=== PATIENT | male | born 1955 | race Caucasian/White ===

== ENCOUNTER 2023-11-23 07:51 | Day surgery (SDC) | payer MEDICARE, BC ==
[~2023-11-23] VITALS: Ht 182.9 cm; Wt 94.9 kg
[2023-11-23] VITALS (17 sets, daily range): BP systolic 91–134; BP diastolic 48–69; PULSE 50–62; RESP 12–18; TEMP 97.3–98.2; O2SAT 95–100
[2023-11-23] MEDS ORDERED: nitroGLYCERIN 0.4mg SUBLingual tab SL PRN ×2 (08:10→12:40)
[2023-11-23] MEDS ORDERED: UBIQ100C2 PO (08:52)
[2023-11-23] MEDS ORDERED: OMEG100037 PO (08:52)
[2023-11-23] MEDS ORDERED: ASPI81TA52 PO (08:52)
[2023-11-23] MEDS ORDERED: SACC250C9 PO (08:52)
[2023-11-23] MEDS ORDERED: MULT-1249 PO (08:52)
[2023-11-23] MEDS ORDERED: NITR0.4T48 SL (08:52)
[2023-11-23] MEDS ORDERED: ATOR10TA70 PO (08:52)
[2023-11-23 08:59] LABS: BASOPHILS % (AUTO) 0.4 % (0-1); EOSINOPHILS # (AUTO) 0.2 X10'3 (0-0.9); EOSINOPHILS % (AUTO) 3.5 % (0-6); HEMATOCRIT 39.6 % (42.0-52.0); HEMOGLOBIN 12.8 g/dl (14.0-17.9); LYMPHOCYTES # (AUTO) 0.8 X10'3 (1.1-4.8); LYMPHOCYTES % (AUTO) 16.1 % (21-51); MEAN CORPUSCULAR HGB CONC 32.3 g/dL (33.0-36.5); MEAN CORPUSCULAR VOLUME 89.9 FL (78-98); MEAN PLATELET VOLUME 6.8 FL (7.4-10.4); MONOCYTES # (AUTO) 0.5 X10'3 (0-0.9); MONOCYTES % (AUTO) 9.5 % (2-12); NEUTROPHILS # (AUTO) 3.4 X10'3 (1.8-7.7); NEUTROPHILS % (AUTO) 70.5 % (42-75); PLATELET COUNT 170 X10'3 (140-440); RED BLOOD COUNT 4.41 X10'6 (4.70-6.10); RED CELL DISTRIBUTION WIDTH 13.7 % (11.5-14.5); WHITE BLOOD COUNT 4.9 X10'3 (4.5-11.0)
[2023-11-23 09:17] LABS: ALBUMIN 3.5 G/DL (3.4-5.0); ANION GAP 6 (8-16); BLOOD UREA NITROGEN 26 MG/DL (7-18); BUN/CREATININE RATIO 18.2 (10.0-20.0); CALCIUM 8.5 MG/DL (8.5-10.1); CHLORIDE 104 MMOL/L (99-107); CREATININE 1.43 MG/DL (0.60-1.10); GLUCOSE 96 MG/DL (70-104); POTASSIUM 4.3 MMOL/L (3.5-5.1); SODIUM 138 MMOL/L (135-145); TOTAL CARBON DIOXIDE 27.9 MMOL/L (24-32); eCRCL 54 ML/MIN; eGFR 49 ML/MIN
[2023-11-23] MEDS: diphenhydrAMINE 25mg capsule PO PRN (09:23)
[2023-11-23] MEDS: LORazepam 0.5 MG tablet PO PRN (09:24)
[2023-11-23] MEDS: normal saline 1,000 ML IV SCH (09:25)
[2023-11-23 09:55] LABS: APTT 26 SECONDS (22-32)
[2023-11-23 10:03] LABS: PROTHROMBIN TIME 10.8 SECONDS (9.0-12.0)
[2023-11-23] MEDS ORDERED: midazolam 1 mg/ML 2ml injection ONE (10:07)
[2023-11-23] MEDS ORDERED: iohexol 350 MG/ML 50ML vial IV ONE (10:07)
[2023-11-23] MEDS ORDERED: LIDOcaine 1% 30ml preserv. free vial ONE (10:07)
[2023-11-23] MEDS ORDERED: iohexol 350MG/ML 100ml bottle IV ONE ×2 (10:07→11:25)
[2023-11-23] MEDS ORDERED: fentaNYL/PF 50MCG/1 ML 2ML syringe ONE (10:07)
[2023-11-23] MEDS ORDERED: tirofiban 12.5mg in NS 250mL 250 ML IV ONE (11:19)
[2023-11-23] MEDS ORDERED: heparin 1,000unit/ml 10ml vial 10 ML ONE (11:22)
[2023-11-23] MEDS ORDERED: ticagrelor 90mg tablet ONE (11:41)
[2023-11-23] MEDS ORDERED: aspirin 325mg tablet ONE (11:41)
[2023-11-23] MEDS ORDERED: ondansetron/PF 4mg/2ml inj IV PRN (12:40)
[2023-11-23] MEDS ORDERED: HYDROcodone/acetaminophen 10/325mg tab PO PRN (12:45)
[2023-11-23] MEDS ORDERED: proCHLORperazine 10 MG/2 ml inj IV PRN (12:45)
[2023-11-23] MEDS ORDERED: OXAZEpam 15mg capsule PO PRN (12:45)
[2023-11-23] MEDS ORDERED: HYDROcodone/acetaminophen 5mg/325mg tablet PO PRN (12:45)
[2023-11-23] MEDS: normal saline 1000ml 1,000 ML IV SCH (13:33)
[2023-11-24 02:00] VITALS: BP_SYST 109; BP_SYST 113; BP_DIAS 62; BP_DIAS 65; PULSE 55; PULSE 60; RESP 12; RESP 14; TEMP 97.3; TEMP 97.4; O2SAT 97
[2023-11-24 06:45] LABS: HEMOGLOBIN A1C 5.8 % (4.5-6.2)
[2023-11-24 07:03] LABS: ALANINE AMINOTRANSFERASE 22 U/L (12-78); ALBUMIN 3.2 G/DL (3.4-5.0); ALKALINE PHOSPHATASE 47 IU/L (46-116); ANION GAP 5 (8-16); ASPARTATE AMINO TRANSFERASE 30 U/L (10-37); BILIRUBIN,TOTAL 0.5 MG/DL (0.1-1.0); BLOOD UREA NITROGEN 21 MG/DL (7-18); BUN/CREATININE RATIO 16.2 (10.0-20.0); CALCIUM 8.5 MG/DL (8.5-10.1); CHLORIDE 103 MMOL/L (99-107); CHOLESTEROL 124 MG/DL (0-200); GLUCOSE 96 MG/DL (70-104); HDL CHOLESTEROL 62 MG/DL (35-60); LDL CHOLESTEROL 48 MG/DL (50-100); POTASSIUM 4.2 MMOL/L (3.5-5.1); SODIUM 136 MMOL/L (135-145); TOTAL CARBON DIOXIDE 28.5 MMOL/L (24-32); TOTAL PROTEIN 6.5 G/DL (6.4-8.2); TRIGLYCERIDES 75 MG/DL (20-135); eCRCL 60 ML/MIN; eGFR 55 ML/MIN
[2023-11-24] MEDS: aspirin 81mg, enteric-coated 1 TAB TABLET.DR PO SCH (08:35)
[2023-11-24] MEDS: atorvastatin 10mg tablet PO SCH (08:35)
[2023-11-24 10:00] VITALS: BP 107/59; PULSE 60; RESP 13; TEMP 97.8; O2SAT 95
[2023-11-24] MEDS: ticagrelor 90mg tablet PO SCH (13:47)
[2023-11-24] MEDS ORDERED: TICA90TA PO (13:52)
== END 2023-11-24 17:04 | disposition home or self-care (01) ==
LOC: SSTAY O 07:51 → PCU 3S 12:25 → SSTAY O 11-24 17:04
PROVIDERS: ATTEND Internal Medicine Cardiovascular Disease
DX: I25.119 Atherosclerotic heart disease of native coronary artery with unspecified angina pectoris (principal)
CPT/HCPCS: 36415; 71046; 80053; 85025; 85610; 85730; 87081; 93005; 93459; 99152; 99153; A6258; C1874; C9600; J1644; J2250; J3010; J3246; J3490; J7030; Q0163; Q9967; 80048; 80061; 83036; 93458; A6449; C1725; C1751; C1760; C1769; G0378